=== PATIENT | male | born 1965 | race Caucasian/White ===

== ENCOUNTER 2019-11-27 15:43 | Emergency (ER) | payer MEDICAID, OTHER ==
[~2019-11-27] VITALS: Ht 180.3 cm; Wt 87.2 kg
[~2019-11-27 15:43] MED LIST: ALPR0.5T6 PO; DULO60CA6 PO; GABA-586 PO; HYDR-2155 PO; MORP30CA13 PO; TRAZ150T49 PO
--- NOTE | 2019-11-27 16:07 | PHYS DOC ---
Past History Past Medical History: Arthritis, Depression, Other Past Surgical History: Other Alcohol Use: None Drug Use: None Adult General Chief Complaint Chief Complaint: LACERATION/AVULSION HPI HPI Patient is a 53-year-old male who presents status post accidental finger amputation. Accident happened prior to arrival. Patient reports trying to close his pickup truck bed when it fell and amputated distal tip of his right index finger. Patient immediately put pressure and wrap tourniquet on finger, packaged distal tip of the finger in a bag, and urgently proceeded to our ER for evaluation. Of note, patient admits being on a baby aspirin daily but has not been taking this for several weeks. Patient's tetanus shot is up-to-date having been administered in past 3 months. He has no other major comorbid conditions. Patient on chronic opioid medications for bilateral shoulder pain, reports pain is present but tolerable, has not taken anything additional for his pain at this time Review of Systems Review of Systems Fourteen body systems of review of systems have been reviewed. See HPI for pertinent positives and negative responses, other rae all other systems are negative, non-pertinent or non-contributory Allergies Allergies Allergies Coded Allergies Type Severity Reaction Last Updated Verified Penicillins Allergy Unknown Nausea and Vomiting 11/27/19 No amoxicillin Allergy Unknown Nausea and Vomiting 11/27/19 No lidocaine Allergy Unknown 11/27/19 Yes Physical Exam Physical Exam Constitutional: Well developed, well nourished, no acute distress, non-toxic ap pearance. [] HENT: Normocephalic, atraumatic, bilateral external ears normal, oropharynx moist, no oral exudates, nose normal. [] Eyes: PERRLA, EOMI, conjunctiva normal, no discharge. [] Neck: Normal range of motion, no tenderness, supple, no stridor. [] Cardiovascular:Heart rate regular rhythm, no murmur [] Lungs & Thorax: Bilateral breath sounds clear to auscultation [] Abdomen: Bowel sounds normal, soft, no tenderness, no masses, no pulsatile masses. [] Skin: Warm, dry, no erythema, no rash. [] Back: No tenderness, no CVA tenderness. [] Extremities: No tenderness, no cyanosis, no clubbing, ROM intact, no edema. Documentation below for bilateral hands unless otherwise specified Index F: FDS, FDP, extension intact with PROM against resistance. No pain on movement. RDN/UDN intact. 2 pt discrimination intact. CR < 2s. Soft compartment. Obvious amputation of distal tip of right index finger involving nailbed and distal tuft, no involvement proximal to DIP Middle F: FDS, FDP, extension intact with PROM against resistance. No pain on movement. RDN/UDN intact. 2 pt discrimination intact. CR < 2s. Soft compartment. No gross deformity Ring F: FDS, FDP, extension intact with PROM against resistance. No pain on movement. RDN/UDN intact. 2 pt discrimination intact. CR < 2s. Soft compartment. No gross deformity Short F: FDS, FDP, extension intact with PROM against resistance. No pain on movement. RDN/UDN intact. 2 pt discrimination intact. CR < 2s. Soft compartment. No gross deformity Thumb: FPL, EPL, EPB, APL intact per routine. RDN/UDN intact per routine. CR < 2s. No gross deformity. Compartments soft. Neurologic: Alert and oriented X 3, normal motor function, normal sensory function, no focal deficits noted. [] Psychologic: Affect normal, judgement normal, mood normal. [] Current Patient Data Vital Signs Vital Signs Date Time Temp Pulse Resp B/P (MAP) Pulse Ox O2 Delivery O2 Flow Rate FiO2 11/27/19 17:20 76 18 113/66 (82) 100 Room Air 11/27/19 16:36 74 16 111/67 (82) 97 Room Air 11/27/19 15:50 98.6 81 16 131/82 (98) 98 Room Air EKG EKG [] Radiology/Procedures Radiology/Procedures PROCEDURE: HAND RIGHT 3V Three-view right hand dated 11/27/2019. No comparison available. CLINICAL INDICATION: Pain after injury. FINDINGS: 3 views of right hand show normal bony alignment. There is soft tissue amputation at the tip of the index finger with small defect in the cortex of the distal tuft. Osseous structures otherwise intact. No periostitis or bone destruction. IMPRESSION: Soft tissue amputation at the tip of the index finger with suspected subtle bony involvement at the distal tuft. Electronically signed by: Primo Youssef MD (11/27/2019 4:34 PM) [facility] Course & Med Decision Making Course & Med Decision Making Patient seen and evaluated by myself on immediate ED arrival Vital signs obtained and grossly unremarkable Hemostasis of finger achieved prior to arrival, comprehensive history and physical exam obtained. Pertinent imaging performed On-call orthopedic physician at [facility] contacted, Dr. Fall. Given involvement was distal to DIP, no urgent surgical indication. Tetanus is up-to-date. Plan to discharge with antibiotics and close outpatient follow-up with Ortho Discussed ED course with patient who is agreeable to plan of care. Discussed there is no chance of replantation at present but there could be indication for further bone shaving versus flat etc., patient understands this Patient had listed allergies to penicillins, denies anaphylaxis. Discussed pres cribing him Keflex for infection control. Patient administered 1 dose of Keflex here and monitored for 30 minutes after administration without any adverse effects Ultimately, patient discharged home in stable condition with strict return precautions advised, patient demonstrated good understanding of these Patient to follow-up with primary care physician in 1 to 7 days and was given information to follow-up with orthopedic physician within same timeframe for follow-up Dragon Disclaimer Dragon Disclaimer This electronic medical record was generated, in whole or in part, using a voice recognition dictation system. Departure Departure: Impression: Primary Impression: Fingertip amputation Disposition: HOME/RESIDENCE PRIOR TO ADM Condition: STABLE Referrals: MARY LOPEZ (PCP) RIGOBERTO FALL MD Patient Instructions: Fingertip Injuries and Amputations Scripts Cephalexin (KEFLEX) 500 Mg Capsule 500 MG PO TID for finger amputation for 7 Days, #21 TAB Prov: CHAVO LAGUNA DO 11/27/19 Justification of Admission: Justification of Admission: Justification of Admission Dx: N/A CHAVO LAGUNA DO Nov 27, 2019 16:07
--- NOTE | 2019-11-27 16:37 | RAD ---
Three-view right hand dated 11/27/2019. No comparison available. CLINICAL INDICATION: Pain after injury. FINDINGS: 3 views of right hand show normal bony alignment. There is soft tissue amputation at the tip of the index finger with small defect in the cortex of the distal tuft. Osseous structures otherwise intact. No periostitis or bone destruction. IMPRESSION: Soft tissue amputation at the tip of the index finger with suspected subtle bony involvement at the distal tuft. Electronically signed by: Primo Youssef MD (11/27/2019 4:34 PM) [facility]
[2019-11-27] MEDS ORDERED: CEPH-264 PO (16:43)
[2019-11-27] MEDS ORDERED: CEPHALEXIN 250 MG CAPSULE PO ONE (16:45)
[2019-11-27 17:20] VITALS: BP 113/66
== END 2019-11-27 17:20 | disposition home or self-care (01) ==
LOC: ER 15:43
DX: S68.110A Complete traumatic metacarpophalangeal amputation of right index finger, initial encounter (principal); M19.90 Unspecified osteoarthritis, unspecified site; Z88.0 Allergy status to penicillin; Z88.1 Allergy status to other antibiotic agents; Z88.4 Allergy status to anesthetic agent; Z79.82 Long term (current) use of aspirin; W20.8XXA Other cause of strike by thrown, projected or falling object, initial encounter; Y93.89 Activity, other specified; Y92.89 Other specified places as the place of occurrence of the external cause; Y99.8 Other external cause status
CPT/HCPCS: 73130; 99283